=== PATIENT | male | born 1995 | race Caucasian/White ===

== ENCOUNTER 2024-02-18 17:48 | Emergency (ER) | payer BC ==
[~2024-02-18] VITALS: Ht 185.4 cm; Wt 140.0 kg
[2024-02-18 17:53] VITALS: O2SAT 96
[2024-02-18] MEDS ORDERED: TOPUD MT (22:29)
[2024-02-18] MEDS ORDERED: IBUP-1525 MT (22:29)
[2024-02-18 23:06] VITALS: BP 118/82; PULSE 82; RESP 16; TEMP 36.89184; O2SAT 100
== END 2024-02-18 23:07 | disposition home or self-care (01) ==
LOC: ER 17:48
DX: R51.9 Headache, unspecified (principal)
CPT/HCPCS: 70450; 70486; 99284; Z7610 ×3